=== PATIENT | male | born 1980 | race Caucasian/White ===

== ENCOUNTER 2016-09-02 14:46 | Emergency (ER) | payer OTHER ==
[~2016-09-02] VITALS: Ht 172.7 cm; Wt 64.9 kg
[2016-09-02 15:14] VITALS: BP 121/81
[2016-09-02] MEDS ORDERED: XANAX0.5 MG PO (15:17)
[2016-09-02] MEDS ORDERED: RISPERDAL0.5 MG PO (15:17)
--- NOTE | 2016-09-02 19:04 | NUR ---
Patient ambulated to bed 5 with family. RN evaluating patient at bedside.
--- NOTE | 2016-09-02 19:14 | NUR ---
Dr. Vaca evaluating patient at bedside.
--- NOTE | 2016-09-02 19:20 | NUR ---
35Y/M PATIENT PRESENTS TO ED WITH C/O SWALLEN LIP X 1 DAY. PT STATES HIS LIP SWALLEN TODAY, NO SOB. DENIES N/V/D; SKIN IS PINK/WARM/DRY; AAOX4 WITH EVEN AND STEADY GAIT; LUNGS CLEAR BL; HR EVEN AND REGULAR; PT DENIES ANY FEVER, CP, SOB, OR COUGH AT THIS TIME; PATIENT STATES PAIN OF 0/10 AT THIS TIME; VSS; PATIENT POSITIONED FOR COMFORT; HOB ELEVATED; BEDRAILS UP X2; BED DOWN. ER MD MADE AWARE OF PT STATUS.
[2016-09-02] MEDS ORDERED: diphenhydrAMINE 50 MG CAP PO ONE ×2 (19:38→19:40)
[2016-09-02] MEDS ORDERED: predniSONE 20 MG TAB PO ONE (19:40)
--- NOTE | 2016-09-02 20:00 | NUR ---
PT. REFUSED MED, ALL INDICATION AND S/E OF MED WAS EXPLAINED. PATIENT VERBALIZED UNDERSTOOD AND INSISTED TO REFUSE. DR. OREILLY MADE AWARE.
--- NOTE | 2016-09-02 20:07 | NUR ---
Patient discharged with v/s stable. Written and verbal after care instructions given and explained. Patient alert, oriented and verbalized understanding of instructions. Ambulatory with steady gait. All questions addressed prior to discharge. ID band removed. Patient advised to follow up with PMD. Rx of EPIPEN 2 PACK AUTO-INJECTOR 0.3MG/0.3ML given. Patient educated on indication of medication including possible reaction and side effects. Opportunity to ask questions provided and answered.
[2016-09-02 20:09] VITALS: BP 115/75
== END 2016-09-02 20:07 | disposition home or self-care (01) ==
LOC: MED 14:46
DX: T78.3XXA Angioneurotic edema, initial encounter (principal); F20.9 Schizophrenia, unspecified; T78.40XA Allergy, unspecified, initial encounter; Z91.030 Bee allergy status; Z88.8 Allergy status to other drugs, medicaments and biological substances; X58.XXXA Exposure to other specified factors, initial encounter
CPT/HCPCS: 99283; J7512; Q0163